=== PATIENT | male | born 1960 | race Two or more races ===

== ENCOUNTER 2022-12-23 12:18 | Emergency (ER) | payer OTHER ==
[~2022-12-23] VITALS: Ht 175.3 cm; Wt 86.2 kg
[2022-12-23 12:37] VITALS: BP 143/91
[2022-12-23 13:17] LABS: BASOPHILS ABSOLUTE AUTO 0.09 K/mm3 (0.00-0.23); BASOPHILS PERCENT AUTO 1 % (0-2); EOSINOPHILS ABSOLUTE AUTO 0.08 K/mm3 (0.00-0.68); EOSINOPHILS PERCENT AUTO 1 % (0-6); Hematocrit 37.7 % (37.0-53.0); Hemoglobin 12.3 g/dL (13.5-17.5); IMMATURE GRAN ABSOLUTE AUTO 0.06 K/mm3 (0.00-0.10); IMMATURE GRAN PERCENT AUTO 1 % (0-1); LYMPHOCYTES ABSOLUTE AUTO 2.02 K/mm3 (0.84-5.20); LYMPHOCYTES PERCENT AUTO 28 % (21-46); MONOCYTES ABSOLUTE AUTO 0.37 K/mm3 (0.16-1.47); MONOCYTES PERCENT AUTO 5 % (4-13); Mean Corpuscular HGB 30.6 pg (26.0-34.0); Mean Corpuscular HGB Conc 32.6 g/dL (31.5-36.5); Mean Corpuscular Volume 94 fL (80-100); Mean Platelet Volume 9.7 fL (9.1-12.4); NEUTROPHILS ABSOLUTE AUTO 4.56 K/mm3 (1.96-9.15); NEUTROPHILS PERCENT AUTO 64 % (41-73); Platelet Count 203 K/mm3 (150-400); RDW Coefficient Variation 14.8 % (11.7-14.2); RDW Standard Deviation 51.2 fL (35.1-46.3); Red Blood Cell Count 4.02 M/mm3 (4.30-5.90); White Blood Cell Count 7.18 K/mm3 (4.00-11.30)
[2022-12-23 13:36] LABS: Albumin, Blood 4.1 g/dL (3.4-5.0); Albumin/Globulin Ratio 1.1 (0.8-1.8); Bilirubin, Total 0.4 mg/dL (0.1-1.0); Bun/Creatinine Ratio 10.2 (12.0-20.0); Calcium, Blood 8.6 mg/dL (8.5-10.1); Creatinine, Blood 1.76 mg/dL (0.60-1.20); Globulin, Blood 3.6 g/dL (2.2-4.0); Potassium, Blood 3.9 mmol/L (3.5-5.5); Total Protein, Blood 7.7 g/dL (6.4-8.2)
== END 2022-12-23 14:30 | disposition left against medical advice (07) ==
LOC: ER 12:18
PROVIDERS: Student in an Organized Health Care Education/Training Program
DX: R06.02 Shortness of breath (principal); R47.81 Slurred speech; Z53.21 Procedure and treatment not carried out due to patient leaving prior to being seen by health care provider
CPT/HCPCS: 71046; 80053; 83880; 85025; 93005; 93010; 99282-25

== ENCOUNTER 2023-11-28 00:12 | Emergency (ER) | payer OTHER ==
[~2023-11-28] VITALS: Ht 177.8 cm; Wt 83.9 kg
[2023-11-28 02:10] LABS: BASOPHILS ABSOLUTE AUTO 0.09 K/mm3 (0.00-0.23); BASOPHILS PERCENT AUTO 2 % (0-2); EOSINOPHILS ABSOLUTE AUTO 0.05 K/mm3 (0.00-0.68); EOSINOPHILS PERCENT AUTO 1 % (0-6); Hematocrit 38.1 % (37.0-53.0); Hemoglobin 11.8 g/dL (13.5-17.5); IMMATURE GRAN ABSOLUTE AUTO 0.04 K/mm3 (0.00-0.10); IMMATURE GRAN PERCENT AUTO 1 % (0-1); LYMPHOCYTES ABSOLUTE AUTO 1.45 K/mm3 (0.84-5.20); LYMPHOCYTES PERCENT AUTO 26 % (21-46); MONOCYTES ABSOLUTE AUTO 0.27 K/mm3 (0.16-1.47); MONOCYTES PERCENT AUTO 5 % (4-13); Mean Corpuscular HGB 29.9 pg (26.0-34.0); Mean Corpuscular Volume 97 fL (80-100); Mean Platelet Volume 9.6 fL (9.1-12.4); NEUTROPHILS ABSOLUTE AUTO 3.69 K/mm3 (1.96-9.15); NEUTROPHILS PERCENT AUTO 66 % (41-73); Platelet Count 172 K/mm3 (150-400); RDW Coefficient Variation 15.2 % (11.7-14.2); RDW Standard Deviation 54.3 fL (35.1-46.3); Red Blood Cell Count 3.95 M/mm3 (4.30-5.90); White Blood Cell Count 5.59 K/mm3 (4.00-11.30)
[2023-11-28 02:11] LABS: Albumin, Blood 3.8 g/dL (3.4-5.0); Bilirubin, Total 0.3 mg/dL (0.1-1.0); Bun/Creatinine Ratio 12.8 (12.0-20.0); Calcium, Blood 9.1 mg/dL (8.5-10.1); Creatinine, Blood 1.56 mg/dL (0.60-1.20); Potassium, Blood 4.3 mmol/L (3.5-5.5); Total Protein, Blood 7.8 g/dL (6.4-8.2)
[2023-11-28 04:03] LABS: Source, Urine Clean Catch
[2023-11-28 04:06] LABS: Bilirubin, Urine Neg (Neg); Blood, Urine Neg (Neg); Glucose Qualitative, Urine Neg (Neg); Ketones, Urine Neg (Neg); Leukocyte Esterase, Urine Neg (Neg); Nitrite, Urine Neg (Neg); Protein, Urine 3+ (Neg); Urobilinogen, Urine 1+ (Normal)
[2023-11-28 04:28] LABS: Appearance, Urine Clear (Clear); Bacteria Not Seen /hpf; Color, Urine Yellow (P-Yellow); Mucus Light (0-Heavy); Red Blood Cells, Urine Not Seen /hpf (0-2); Squamous Epithelial Cells Not Seen /hpf (Few); White Blood Cells, Urine 0-2 /hpf (0-5)
[2023-11-28] MEDS ORDERED: Glycerin Adult Supp 1 EA PR ONE (04:55)
[2023-11-28] MEDS ORDERED: DOCU100 PO (05:44)
[2023-11-28] MEDS ORDERED: ADULT GLYCERIN1 EACH PR (05:44)
[2023-11-28 05:55] VITALS: BP 149/75
== END 2023-11-28 05:56 | disposition home or self-care (01) ==
LOC: ER 00:12
PROVIDERS: Emergency Medicine
DX: K59.00 Constipation, unspecified (principal); I71.012 Dissection of descending thoracic aorta; I71.02 Dissection of abdominal aorta; I71.21 Aneurysm of the ascending aorta, without rupture; I31.39 Other pericardial effusion (noninflammatory); I50.9 Heart failure, unspecified; I69.334 Monoplegia of upper limb following cerebral infarction affecting left non-dominant side; Z91.81 History of falling; Z88.8 Allergy status to other drugs, medicaments and biological substances
CPT/HCPCS: 71045; 71275; 74177; 80053; 81001; 83880; 84484; 85025; 93005; 93010; 99284-25; A9270; Q9967

== ENCOUNTER 2024-05-29 15:29 | Emergency (ER) | payer OTHER ==
[~2024-05-29] VITALS: Ht 177.8 cm; Wt 104.3 kg
[~2024-05-29 15:29] MED LIST: ADULT GLYCERIN1 EACH PR; DOCU100 PO
[2024-05-29 15:41] VITALS: BP 110/80
[2024-05-29 16:14] LABS: Hematocrit 38.6 % (37.0-53.0); Hemoglobin 12.8 g/dL (13.5-17.5); Mean Corpuscular HGB Conc 33.2 g/dL (31.5-36.5); Mean Corpuscular Volume 94 fL (80-100); Mean Platelet Volume 8.2 fL (9.1-12.4); Platelet Count 229 K/mm3 (150-400); RDW Coefficient Variation 14.4 % (11.7-14.2); RDW Standard Deviation 49.3 fL (35.1-46.3); Red Blood Cell Count 4.13 M/mm3 (4.30-5.90); White Blood Cell Count 6.95 K/mm3 (4.00-11.30)
[2024-05-29 16:33] LABS: Albumin, Blood 3.5 g/dL (3.4-5.0); Albumin/Globulin Ratio 0.8 (0.8-1.8); Bilirubin, Total 0.4 mg/dL (0.1-1.0); Bun/Creatinine Ratio 14.3 (12.0-20.0); Calcium, Blood 8.7 mg/dL (8.5-10.1); Creatinine, Blood 1.47 mg/dL (0.60-1.20); Globulin, Blood 4.3 g/dL (2.2-4.0); Potassium, Blood 4.1 mmol/L (3.5-5.5); Total Protein, Blood 7.8 g/dL (6.4-8.2)
[2024-05-29 16:34] LABS: BAND PERCENT MAN 1 % (0-8); BASOPHILS PERCENT MAN 3 % (0-2); EOSINOPHILS ABSOLUTE MAN 0.13 K/mm3 (0.00-0.68); EOSINOPHILS PERCENT MAN 2 % (0-6); LYMPHOCYTES ABSOLUTE MAN 1.94 K/mm3 (0.84-5.20); LYMPHOCYTES PERCENT MAN 28 % (21-46); METAMYELOCYTE ABSOLUTE MAN 0.06 K/mm3 (0.00-0.00); METAMYELOCYTE PERCENT MAN 1 % (0-0); MONOCYTES ABSOLUTE MAN 0.13 K/mm3 (0.16-1.47); MONOCYTES PERCENT MAN 2 % (4-13); MYELOCYTE ABSOLUTE MAN 0.13 K/mm3 (0.00-0.00); MYELOCYTE PERCENT MAN 2 % (0-0); SEG NEUTROPHILS PERCENT MAN 61 % (41-73); TOTAL CELLS COUNTED 100
== END 2024-05-29 18:35 | disposition left against medical advice (07) ==
LOC: ER 15:29
PROVIDERS: Physician Assistant
DX: R06.02 Shortness of breath (principal); I50.9 Heart failure, unspecified; Z53.21 Procedure and treatment not carried out due to patient leaving prior to being seen by health care provider
CPT/HCPCS: 71046; 80053; 83880; 84484; 85025; 93005; 93010; 99282-25

== ENCOUNTER 2025-01-19 23:35 | Inpatient (IN) | payer OTHER ==
[~2025-01-19] VITALS: Ht 175.3 cm; Wt 98.6 kg
[2025-01-20] VITALS (31 sets, daily range): BP systolic 97–147; BP diastolic 56–88
[2025-01-20] MEDS ORDERED: NICODERM CQ1 EA25 TD (00:06)
[2025-01-20] MEDS ORDERED: LISI20 PO ×2 (00:06→07:49)
[2025-01-20] MEDS ORDERED: HYDCHL25 PO (00:07)
[2025-01-20 00:09] LABS: Hematocrit 36.3 % (37.0-53.0); Hemoglobin 11.8 g/dL (13.5-17.5); Mean Corpuscular HGB Conc 32.5 g/dL (31.5-36.5); Mean Corpuscular Volume 91 fL (80-100); NRBC ABSOLUTE 0.00 K/mm3 (0.00-0.02); NRBC Auto 0.0 /100 WBC (0.0-0.2); Platelet Count 350 K/mm3 (150-400); RDW Coefficient Variation 13.6 % (11.7-14.2); RDW Standard Deviation 45.9 fL (35.1-46.3)
[2025-01-20 00:37] LABS: BAND PERCENT MAN 3 % (0-8); BASOPHILS ABSOLUTE MAN 0.00 K/mm3 (0.00-0.23); BASOPHILS PERCENT MAN 0 % (0-2); EOSINOPHILS ABSOLUTE MAN 0.00 K/mm3 (0.00-0.68); EOSINOPHILS PERCENT MAN 0 % (0-6); LYMPHOCYTES ABSOLUTE MAN 0.45 K/mm3 (0.84-5.20); LYMPHOCYTES PERCENT MAN 2 % (21-46); MONOCYTES ABSOLUTE MAN 1.37 K/mm3 (0.16-1.47); MONOCYTES PERCENT MAN 6 % (4-13); MYELOCYTE ABSOLUTE MAN 0.22 K/mm3 (0.00-0.00); MYELOCYTE PERCENT MAN 1 % (0-0); NEUTROPHILS ABSOLUTE MAN 20.87 K/mm3 (1.96-9.15); SEG NEUTROPHILS PERCENT MAN 88 % (41-73)
[2025-01-20 03:15] LABS: Alanine Aminotransfer (ALT/SGP 27.0 U/L (12-78); Albumin, Blood 2.2 g/dL (3.4-5.0); Albumin/Globulin Ratio 0.5 (0.8-1.8); Anion Gap 7.0 mmol/L (3-11); Aspartate Aminotrans (AST/SGOT 36.0 U/L (12-37); Bilirubin, Total 0.6 mg/dL (0.1-1.0); Blood Urea Nitrogen 21.0 mg/dL (8-24); CO2, Blood 28.0 mmol/L (21-32); Calcium, Blood 8.5 mg/dL (8.5-10.1); Chloride, Blood 103.0 mmol/L (98-108); Creatinine, Blood 1.31 mg/dL (0.60-1.20); Globulin, Blood 4.5 g/dL (2.2-4.0); Glucose, Blood 118.0 mg/dL (70-99); Magnesium, Blood 2.1 mg/dL (1.6-2.4); Phosphorus, Blood 2.7 mg/dL (2.5-4.9); Potassium, Blood 3.9 mmol/L (3.5-5.5); Sodium, Blood 134.0 mmol/L (136-145); Thyroid Stimulating Hormone 45.5 uIU/mL (0.360-4.800); Total Protein, Blood 6.7 g/dL (6.4-8.2); Uric Acid, Blood 4.1 mg/dL (3.5-7.2)
[2025-01-20 03:53] LABS: Source, Urine Clean Catch
[2025-01-20 03:59] LABS: Glucose Qualitative, Urine Neg (Neg); Ketones, Urine Neg (Neg); Leukocyte Esterase, Urine 1+ (Neg); Protein, Urine 3+ (Neg); Specific Gravity, Urine 1.015 (1.003-1.022); Urobilinogen, Urine 2+ (Normal)
[2025-01-20 04:07] LABS: Bilirubin, Urine 1+ (Neg); Color, Urine Amber (P-Yellow); Red Blood Cells, Urine 0-2 /hpf (0-2); White Blood Cells, Urine 0-2 /hpf (0-5)
[2025-01-20] MEDS ORDERED: CefTRIAXone Sodium 1,000 MG in NS 50 ML IV ONE (04:10)
[2025-01-20] MEDS ORDERED: FLU VACC TS2025-26(6MOS UP)/PF 45 MCG/0.5 ML SYRINGE IM SCH (05:35)
[2025-01-20] MEDS ORDERED: Ondansetron HCl 2 MG / ML 2ML Vial IV PRN (05:35)
[2025-01-20] MEDS ORDERED: Ampicillin Sod/Sulbactam Sod 3 GM in NS 100 ML IV SCH (06:18)
[2025-01-20] MEDS ORDERED: EUTHYROX75 MC1 PO (07:48)
[2025-01-20] MEDS ORDERED: CYCL10 PO (07:48)
[2025-01-20] MEDS ORDERED: ZOLOFT50 MG PO (07:49)
[2025-01-20] MEDS ORDERED: Lactobacil 2-S.Thermo-Bifido 1 1 Cap PO SCH (09:00)
[2025-01-20 09:23] LABS: Influenza A/2009-H1 Not Detected (NOT DETECT); SARS-Cov-2 (COVID-19), BioFire Not Detected (NOT DETECT)
[2025-01-20] MEDS ORDERED: Albuterol 2.5 MG/3 ML VIAL INH PRN (10:00)
[2025-01-20 10:50] LABS: pH Blood Venous 7.32 (7.34-7.37)
[2025-01-20 12:41] LABS: U Amphetamine Screen Not Detected; U Barbiturate Screen Not Detected; U Benzodiazapine Screen Not Detected; U Buprenorphine Screen Not Detected; U Cannabinoids Screen Not Detected; U Cocaine Screen Not Detected; U Methadone Screen Not Detected; U Methamphetamine Screen Not Detected; U Opiates Screen Not Detected; U Oxycodone Screen Not Detected; U Phencyclidine Screen Not Detected
--- NOTE | 2025-01-20 15:51 | NUR ---
ADMISSION/TRANSFER: PT IS NEW ADMIT, ARRIVAL TO PCU APPROX 0750, TRANSFERS SELF W/ 2P SBA. PT ARRIVES ALERT, INITIALLY EXPRESSING FEELING ANXIOUS, FIDGETING WITH PULSE OX/CLOTHING, NOT FOLLOWING DIRECTION WELL OR ANWERING ORIENTATION QUESTIONS FULLY BEFORE RAMBLING ABOUT UNRELATED TOPICS. PROVIDER NOTIFIED, NEW ORDERS PLACED AND PT MEDICATED PER EMAR. PT ENDORSES INTERMITTENT SOB/DYSPNEA W/ACTIVITY, O2 SATS MAINTAINED >92%, CURRENTLY ON 4 L/MIN NC. PT DENIES CP, SR ON MONITOR, RATE 80s. PT TO/FROM RESTROOM W/ 2P SBA AND FWW, URINE SPECIMEN COLLECTED AND SENT TO LAB. PT HAS BEEN SLEEPING/RESTING IN BED SINCE SPENDING TIME IN RECLINER FOR LUNCH, HAS BEEN COOPERATIVE W/CARE. ECHO COMPLETED AT BEDSIDE, PROVIDER NOTIFIED THIS UNIT WHILE READING ECHO, PT TO BE TRANSFERED TO ICU FOR CONTINUATION OF CARE. PULMONOLOGY CONSULT COMPLETED BY DR GREEN WHO STATES THE BRONCHOSCOPY FOR TOMORROW IS CURRENTLY ON HOLD. REPORT HAS BEEN GIVEN TO MAIA, PT TRANSFERED VIA [facility].
--- NOTE | 2025-01-20 16:23 | NUR ---
TRANSFER TO ICU: PT WAS TRANSFERRED TO ICU-4 BY BED AT APPROX 1555. PT DROWSY, ABLE TO COMMUNICATE W/ STAFF, SPEAKING IN SHORT PHRASES. HR 80'S, SINUS RHYTHM W/ PVC'S ON MONITOR. SBP 120'S, MAP >65. PT DENIES CHEST PAIN/PRESSURE. DENIES SOB. SPO2 >90% ON 4L O2 VIA NC. DR. SCHUSTER TO BEDSIDE SHORTLY AFTER TRANSFER; PT REQUESTS FULL CODE STATUS. ORDER UPDATED. CARDIOLOGY CONSULT PLACED PER ORDER, DR. WOOD NOTIFIED OF CONSULT. NPO AT THIS TIME. LR INFUSING AT 75 ML/HR, PIV TO LAC. ATTEMPTED TO CALL DAUGHTER (ANDRE) AND SISTER (KAILEE), UNABLE TO REACH EITHER FAMILY MEMBER AT THIS TIME. PT RESTING IN BED.
--- NOTE | 2025-01-20 18:19 | NUR ---
END OF SHIFT: NO ACUTE EVENTS FOLLOWING TRANSFER TO ICU. VSS. PG PLACED TO NATALIA. IVF INFUSING AT 75 ML/HR PER ORDERS. PT RESTING IN BED AT THIS TIME. CALL LIGHT IN REACH.
--- NOTE | 2025-01-20 20:00 | NUR ---
PT UPDATE: PT HAD IN DEPTH DISCUSSION W/THIS RN ABOUT HIS FEELINGS TOWARD THE PLAN OF CARE AND PLANNED DIAGNOSTIC TESTS. PT SHARED W/THIS RN THAT HE FELT LIKE LEAVING "AGAINST MEDICAL ADVICE" DUE TO FEELING THAT "OTHERS TOOK CONTROL OF THE SITUATION" AND HE WAS NO LONGER IN CONTROL OF HIS HEALTH CARE DECISIONS. PT SHARED THAT THIS MADE HIM VERY ANXIOUS. THIS RN PROVIDED ACTIVE EMPATHETIC LISTENING AND ENCOURAGEMENT. PT WAS ALSO EDUCATED ON REASONING BEHIND HIS NPO STATUS, WHICH WAS SOMETHING THAT HE VERBALIZED FRUSTRATION OF. ACCORDING TO DAY SHIFT RN, PT HAD MULTIPLE DISCUSSIONS W/MD REGARDING CODE STATUS/PLAN OF CARE. UNSURE IF PT FULLY UNDERSTOOD WHAT WAS DISCUSSED OR IF PTS FORGETFULLNESS IS WHAT IS AFFECTING HIS MEMORY/DECISION MAKING. AT END OF DISCUSSION, PT WAS AGREEABLE TO STAYING THE NIGHT AND PLANS TO DISCUSS THIS FURTHER W/ DR TOMORROW. RN PLACED CALL TO HOSPITALIST WHO ORDERED ATIVAN ONE TIME DOSE, SEE EMAR, FOR ANXIETY.
[2025-01-20] MEDS ORDERED: LORazepam 2 MG/ML 1ML Injection IV ONE (21:00)
[2025-01-21] VITALS (72 sets, daily range): BP systolic 73–144; BP diastolic 51–91
[2025-01-21 05:05] LABS: BASOPHILS ABSOLUTE AUTO 0.08 K/mm3 (0.00-0.23); BASOPHILS PERCENT AUTO 0 % (0-2); EOSINOPHILS ABSOLUTE AUTO 0.01 K/mm3 (0.00-0.68); EOSINOPHILS PERCENT AUTO 0 % (0-6); Hematocrit 35.9 % (37.0-53.0); Hemoglobin 10.8 g/dL (13.5-17.5); IMMATURE GRAN ABSOLUTE AUTO 0.50 K/mm3 (0.00-0.10); IMMATURE GRAN PERCENT AUTO 2 % (0-1); LYMPHOCYTES ABSOLUTE AUTO 0.63 K/mm3 (0.84-5.20); LYMPHOCYTES PERCENT AUTO 3 % (21-46); MONOCYTES ABSOLUTE AUTO 0.95 K/mm3 (0.16-1.47); MONOCYTES PERCENT AUTO 4 % (4-13); Mean Corpuscular HGB Conc 30.1 g/dL (31.5-36.5); NEUTROPHILS ABSOLUTE AUTO 20.71 K/mm3 (1.96-9.15); NEUTROPHILS PERCENT AUTO 91 % (41-73); NRBC ABSOLUTE 0.00 K/mm3 (0.00-0.02); NRBC Auto 0.0 /100 WBC (0.0-0.2); Platelet Count 336 K/mm3 (150-400); RDW Coefficient Variation 14.0 % (11.7-14.2); RDW Standard Deviation 50.0 fL (35.1-46.3)
[2025-01-21 05:12] LABS: Mean Corpuscular Volume 97 fL (80-100)
[2025-01-21 05:19] LABS: Prothrombin Time Results 11.8 Sec (9.7-11.5)
[2025-01-21 05:46] LABS: Alanine Aminotransfer (ALT/SGP 22.0 U/L (12-78); Albumin, Blood 2.2 g/dL (3.4-5.0); Albumin/Globulin Ratio 0.5 (0.8-1.8); Anion Gap 8.0 mmol/L (3-11); Aspartate Aminotrans (AST/SGOT 21.0 U/L (12-37); Bilirubin, Total 0.5 mg/dL (0.1-1.0); Blood Urea Nitrogen 19.0 mg/dL (8-24); CO2, Blood 31.0 mmol/L (21-32); Calcium, Blood 8.8 mg/dL (8.5-10.1); Chloride, Blood 104.0 mmol/L (98-108); Creatinine, Blood 1.37 mg/dL (0.60-1.20); Globulin, Blood 4.8 g/dL (2.2-4.0); Glucose, Blood 92.0 mg/dL (70-99); Magnesium, Blood 2.4 mg/dL (1.6-2.4); Potassium, Blood 3.9 mmol/L (3.5-5.5); Sodium, Blood 139.0 mmol/L (136-145); Total Protein, Blood 7.0 g/dL (6.4-8.2)
--- NOTE | 2025-01-21 05:59 | NUR ---
SHIFT SUMMARY: PT RECEIVED ATIVAN, PER ORDERS, SHORTLY AFTER START OF SHIFT. PT HAD BEEN FEELING VERY ANXIOUS. AFTER MEDICATION, PT SLEPT T/O THE NIGHT. REMAINED AROUSABLE TO VOICE, THOUGH DROWSY. VSS. MAP>65. HR 60-70S, SINUS. PT REMAINS ON 4L O2 VIA NC. SATS>90%. DENIES CHEST PAIN, ENDORSED SOB W/EXERTION. PT HAS OCCASSIONAL COUGH, PRODUCTIVE. ABD SOFT, BT HYPOACTIVE X4. USING URINAL TO VOID. HE DID HAVE SMALL EPISODE OF INCONTINENCE DUE TO NOT GETTING TO URINAL QUICK ENOUGH. NEW LINENS AND ATTENDS CHANGE PROVIDED. POWERGLIDE TO NATALIA AND PIV IN LAC. MAINTENANCE LR RUNNING AT 75ML/HR. CARE CONTINUES. THIS RN TO REPORT TO ONCOMING RN.
--- NOTE | 2025-01-21 07:00 | NUR ---
CARE ASSUMPTION DURING BEDSIDE SHIFT REPORT Jacki LIU RN THE PT IS LYING IN BED SLEEPING COMFORTABLY. PT AWAKENS TO VOICE BUT IS VERY DROWSY, NOC RN REPORTING THAT PT RECIEVED IV ATIVAN AND HAS BEEN DROWSY SINCE THEN. PT ANSWERING SIMPLE YES/NO QUESTIONS BUT IS SLOW TO RESPOND. PT HAS LIMITED ROM IN HIS LUE, PROVIDER AWARE OF THIS WELL THE EDEMA IN HIS LEFT HAND. PT'S MONITOR SHOWING SA 60'S-80'S W OCCASIONAL PVC'S. PT REPORTS MINIMAL CP THAT IS UNCHANGED SINCE ADMISSION. PT'S SISTER AT BEDSIDE AT THIS TIME. PLAN FOR PT TO GO TO AMUSEMENT PARK WORKER THIS AM.
[2025-01-21] MEDS ORDERED: NS 500 ML IV ONE (08:36)
[2025-01-21] MEDS ORDERED: Heparin Sodium 1000 Units/ML 10ML MDV ONE ×2 (08:36→11:02)
[2025-01-21] MEDS ORDERED: NS 1,000 ML IV ONE ×2 (08:41→11:34)
[2025-01-21] MEDS ORDERED: FentaNYL Citrate 50 MCG/ML 2 ML Injection ONE ×3 (09:09→11:34)
[2025-01-21] MEDS ORDERED: Midazolam HCl 1MG / ML 2ML Vial ONE ×2 (09:09→11:34)
--- NOTE | 2025-01-21 10:08 | NUR ---
RETURNED FROM PROFESSIONAL SECURITY OFFICER. PT BACK TO RM FROM PROFESSIONAL SECURITY OFFICER. REPORT FROM HC TEAM IS PROCEDURE WAS UNSUCCESSFUL AND PT WILL NEED TO GO TO CT SCAN FOR ANOTHER ATTEMMPT TODAY. PT'S VSS ON 2L OXYMASK. PT W RASS OF -2, PROFESSIONAL SECURITY OFFICER TEAM REPORTING GIVING PT SEDATION MEDS DURING PROCEDURE. PT W MINIMAL RESPONSE VERBALLY EXCEPT MOANING YES/NO. PROVIDER AWARE OF RASS LEVEL.
[2025-01-21 10:49] LABS: pH Blood Venous 7.21 (7.34-7.37)
[2025-01-21 10:59] LABS: BASOPHILS ABSOLUTE AUTO 0.08 K/mm3 (0.00-0.23); BASOPHILS PERCENT AUTO 0 % (0-2); EOSINOPHILS ABSOLUTE AUTO 0.01 K/mm3 (0.00-0.68); EOSINOPHILS PERCENT AUTO 0 % (0-6); Hematocrit 37.3 % (37.0-53.0); Hemoglobin 11.2 g/dL (13.5-17.5); IMMATURE GRAN ABSOLUTE AUTO 0.46 K/mm3 (0.00-0.10); IMMATURE GRAN PERCENT AUTO 2 % (0-1); LYMPHOCYTES ABSOLUTE AUTO 0.80 K/mm3 (0.84-5.20); LYMPHOCYTES PERCENT AUTO 4 % (21-46); MONOCYTES ABSOLUTE AUTO 0.97 K/mm3 (0.16-1.47); MONOCYTES PERCENT AUTO 4 % (4-13); Mean Corpuscular HGB Conc 30.0 g/dL (31.5-36.5); Mean Corpuscular Volume 99 fL (80-100); NEUTROPHILS ABSOLUTE AUTO 19.63 K/mm3 (1.96-9.15); NEUTROPHILS PERCENT AUTO 90 % (41-73); NRBC ABSOLUTE 0.00 K/mm3 (0.00-0.02); NRBC Auto 0.0 /100 WBC (0.0-0.2); Platelet Count 334 K/mm3 (150-400); RDW Coefficient Variation 14.3 % (11.7-14.2); RDW Standard Deviation 51.8 fL (35.1-46.3)
[2025-01-21] MEDS ORDERED: NS 250 ML IV ONE (11:02)
[2025-01-21 11:19] LABS: Anion Gap 5.0 mmol/L (3-11); Blood Urea Nitrogen 22.0 mg/dL (8-24); CO2, Blood 33.0 mmol/L (21-32); Calcium, Blood 8.9 mg/dL (8.5-10.1); Chloride, Blood 103.0 mmol/L (98-108); Creatinine, Blood 1.34 mg/dL (0.60-1.20); Glucose, Blood 80.0 mg/dL (70-99); Potassium, Blood 3.8 mmol/L (3.5-5.5); Sodium, Blood 137.0 mmol/L (136-145)
[2025-01-21] MEDS ORDERED: Ondansetron HCl 2 MG / ML 2ML Vial ONE (11:39)
[2025-01-21] MEDS ORDERED: Naloxone HCl 0.4MG / ML 1ML Vial ONE (11:39)
[2025-01-21] MEDS ORDERED: Flumazenil 0.1 MG / ML 5ML Vial ONE (11:41)
[2025-01-21 13:12] LABS: Automated BF WBC Count 0.164 K/mm3 (0-999)
[2025-01-21] MEDS ORDERED: Ipratropium/Albuterol SulF 2.5-0.5MG/3 ML Amp INH SCH (13:20)
--- NOTE | 2025-01-21 13:24 | NUR ---
REASSESSMENT PT BACK FROM CT WHERE HE HAD PARACARDIALCENTESIS PERFORMED. PT STILL OBTUNDED ONLY AROUSING BRIEFLY TO VOICE BUT UNABLE TO MAINTAIN EYE CONTACT. PT ON BIPAP 16/8 W 40% FIO2. LS ARE STILL COARSE IN RUL BUT DIMINISHED T/O. MONITOR SHOWING SR 60'S. BP WNL AND STABLE. DR. GREEN MADE AWARE OF PT'S US RESULTS SHOWING DVT IN LUE. NO NEW ORDERS AT THIS TIME. DR. GREEN STATING IT IS OK TO KEEP IV'S IN PT'S LUE FOR NOW THE OPTIONS FOR PERIPHERAL ACCESS IN HIS RUE ARE LIMITED.
[2025-01-21 13:31] LABS: Color, Body Fluid Yellow (None-Yellow)
[2025-01-21 13:47] LABS: RBC Count, Body Fluid 119 /mm3 (0-0)
[2025-01-21 13:59] LABS: pH Blood Venous 7.17 (7.34-7.37)
[2025-01-21 13:59] LABS: Lactate Dehydrogenase, Body Fl 174 U/L
[2025-01-21 14:42] LABS: Lymphocytes, Fluid 1.0 % (0.0-18.0); Monocytes/Mononuclear, Fluid 36.0 % (0.0-50.0); Neutrophils, Fluid 63.0 % (0.0-25.0); Total Cell Count, Body Fluid 100
--- NOTE | 2025-01-21 14:55 | NUR ---
UPDATE AFTER RT CHANGED BIPA BACKUP RATE FROM 14 TO 20 THE PT IS BECOMING MORE ALERT AND MAINTAINING EYE CONTACT. DECESION MADE BY DR. GREEN TO CONTINUE BIPAP AND RECHECK VBG. THIS CONFIRMING W DR. GREEN THAT IV LINES ARE OK TO REMAIN IN LUE DESPITE US REPORT WHICH HE GAVE VERBAL INSTRUCTIONS TO LEAVE IV LINES IN PLACE. VSS AND FIO2 TURNED DOWN TO 30% BY DR. GREEN.
[2025-01-21 15:57] LABS: pH Blood Venous 7.20 (7.34-7.37)
--- NOTE | 2025-01-21 16:06 | NUR ---
PROVIDER CONTACT [facility] PH 7.[address] GEREN. WE ARE TO CONTINUE PLAN OF CARE AND PROVIDER WILL PUT IN AN ORDER FOR STEROIDS.
--- NOTE | 2025-01-21 16:51 | NUR ---
1600 ASSESSMENT PATIENT ALERT AND ORIENTED AND ABLE TO ANSWER QUESTIONS. PATIENT IS ON THE BIPAP 20/8 30% FIO2 WITH SPO2 >94%. HR SINUS IN THE 60S-70S. BP STABLE WITH MAPS >65. PATIENT HAS NOT HAD ANY URINE OUTPUT THIS SHIFT. PATIENT WAS UNABLE TO URINATE WHEN ASKED. BLADDER SCAN SHOWED 351ML IN BLADDER. NO BM THIS SHIFT. DRESSING FROM PERICARDIOCENTESIS C/D/I. PATIENT JO ANN CP/PRESSURE. CALL LIGHT NEAR.
--- NOTE | 2025-01-21 18:28 | NUR ---
DAY SHIFT SUMMARY PT BEGAN THE SHIFT OBTUNDED NOC RN REPORTED HE RECIEVED ATIVAN AND HAD BEEN DROWSY EVER SINCE. PT TO PATENTED HOGSHEAD ASSEMBLER THIS AM WHERE HE RECIEVED IV PAIN MEDICATION FOR SEDATION AND THE PROCEDURE WAS UNSUCCESSFUL. UPON RETURNING TO ICU THE PT WAS OBTUNDED AND A VBG WAS DRAWN SHOWING ELEVATED CO2 LEVEL SO PT PLACED ON BIPAP. PT TAKEN TO CT SCAN AND HAD PERICARDIALCENTESIS WHICH REMOVED 840ML. PT REMAINED ON BIPAP AND DESPITE CO2 LEVEL REMIANING ELEVATED THE PT'S MENTATION HAS IMPROVED SO PLAN TO KEEP PT ON BIPAP ALLOWING SHORT BREAKS LONG THE PT REMAIONS AWAKE. PT'S LUE SWOLLEN THIS SHIFT SO US DONE SHOWING DVT. PER PROVIDER NO ANTICOAGULATION AT THIS TIME AND TO KEEP CURRENT IV ACCESS IN LUE DESPITE DVT. PT AWAKE THIS AFTERNOON COMMUNICATING APPROPRIATELY W STAFF SO PT GIVEN SHORT BREAKS OFF BIPAP FOR PO FLUIDS. PT GIVEN ENSURE CLEAR THIS AFTERNOON HIS 1800 CBG IN THE 70'S, PT TOLERATING PO INTAKE WELL. VSS. MONITOR SHOWING SR 60'S-70'S W PVC'S. PT'S SISTER KAILEE UPDATED THIS AFTERNOON ON PT'S DAY AND PROCEDURE RESULTS. PT W MINIMAL INCONTINENT VOID THIS SHIFT, BLADDER SCAN THIS AFTERNOON SHOWING 350. WILL REPORT TO ONCOMING RN.
--- NOTE | 2025-01-21 22:40 | NUR ---
AGITATION PT PULLING OFF BIPAP MASK AND PULLING ON CORDS/LINES. YELLING OUT. DOES NOT CALM WITH REASSURANCE OR EXPLANATION OF PLAN OF CARE. NEW ORDER RECEIVED FOR PRECEDEX GTT IVT.
[2025-01-22] VITALS (30 sets, daily range): BP systolic 75–160; BP diastolic 50–122
--- NOTE | 2025-01-22 00:30 | NUR ---
CALL TO MD DR. GREEN NOTIFIED OF SBP 70s WITH MAP LOW 60s WITH PRECEDEX AT 0.1MCG/KG/HR. ALSO NOTIFIED OF CONTINUED AGIATION AND ANXIOUSNESS. NEW ORDER FOR LR BOLUS AT THIS TIME.
[2025-01-22 05:31] LABS: pH Blood Venous 7.33 (7.34-7.37)
[2025-01-22 05:32] LABS: BASOPHILS ABSOLUTE AUTO 0.03 K/mm3 (0.00-0.23); BASOPHILS PERCENT AUTO 0 % (0-2); EOSINOPHILS ABSOLUTE AUTO 0.00 K/mm3 (0.00-0.68); EOSINOPHILS PERCENT AUTO 0 % (0-6); Hematocrit 31.8 % (37.0-53.0); Hemoglobin 9.9 g/dL (13.5-17.5); IMMATURE GRAN ABSOLUTE AUTO 0.47 K/mm3 (0.00-0.10); IMMATURE GRAN PERCENT AUTO 2 % (0-1); LYMPHOCYTES ABSOLUTE AUTO 0.71 K/mm3 (0.84-5.20); LYMPHOCYTES PERCENT AUTO 3 % (21-46); MONOCYTES ABSOLUTE AUTO 0.24 K/mm3 (0.16-1.47); MONOCYTES PERCENT AUTO 1 % (4-13); Mean Corpuscular HGB Conc 31.1 g/dL (31.5-36.5); NEUTROPHILS ABSOLUTE AUTO 19.83 K/mm3 (1.96-9.15); NEUTROPHILS PERCENT AUTO 93 % (41-73); NRBC ABSOLUTE 0.00 K/mm3 (0.00-0.02); NRBC Auto 0.0 /100 WBC (0.0-0.2); Platelet Count 354 K/mm3 (150-400); RDW Coefficient Variation 14.0 % (11.7-14.2); RDW Standard Deviation 49.2 fL (35.1-46.3)
[2025-01-22 05:34] LABS: Mean Corpuscular Volume 94 fL (80-100)
[2025-01-22 06:20] LABS: Anion Gap 9.0 mmol/L (3-11); Blood Urea Nitrogen 24.0 mg/dL (8-24); CO2, Blood 30.0 mmol/L (21-32); Calcium, Blood 8.5 mg/dL (8.5-10.1); Chloride, Blood 103.0 mmol/L (98-108); Creatinine, Blood 1.22 mg/dL (0.60-1.20); Glucose, Blood 160.0 mg/dL (70-99); Glutamyl Transpeptidase, GGT 17.0 U/L (15-85); Magnesium, Blood 2.3 mg/dL (1.6-2.4); Phosphorus, Blood 3.5 mg/dL (2.5-4.9); Potassium, Blood 4.1 mmol/L (3.5-5.5); Sodium, Blood 138.0 mmol/L (136-145)
--- NOTE | 2025-01-22 06:21 | NUR ---
SHIFT SUMMARY PT IS ALERT AND ORIENTED BUT NEEDS FREQUENT REMINDING/REDIRECTION, MOVES ALL EXTREMETIES, AFEBRILE, PERRLA. ABLE TO MAKE NEEDS KNOWN AND FOLLOWS COMMANDS APPROPRIATLEY. PT IS ON BIPAP T/O THE NIGHT WITH PERIODS OF REST ON 3L/NC AND TOLERATING WELL. SBP IN THE LOW 100'S WITH MAP >65 AND HR IN THE 60'S, PT HAS INSUFFICIENT PERFUSION, MONITORS HAVE A HARD TIME GETTING ACCURATE READINGS. PT IS TOLERATING CLEAR LIQUIDS AND USING URINAL APPROPRIATELY. PT HAS MAINTANCE FLUIDS AND PRECEDEX INFUSING CURRENTLY. SISTER HAS MARIA D FOR UPDATES OVERNIGHT. [facility].
[2025-01-22] MEDS ORDERED: Piperacillin/Tazobactam Sod 3.375 GM in NS 100 ML IV SCH (14:59)
--- NOTE | 2025-01-22 15:03 | NUR ---
Spiritual Care Visit. Pt. is awake in bed and welcomes my visit. Pt. soon moves and sits on the side of his bed. Pt. is pleasant. Facilitate a life review and consider matters of pili and belief. Pt. verbalizes that he has not "been spiritual" lately but adds that he believes it was wrong to blame God for his circumstances. Pastoral care is given. Listen with both emptahy and interest. Pt. displays evidence of both being aware and engaged. Prayed with the Pt. Pt. verbalizes gratitude for the spiritual care visit and welcomes this senior biostatistician to return.
[2025-01-22] MEDS ORDERED: NS 250 ML IV PRN (15:05)
--- NOTE | 2025-01-22 15:28 | NUR ---
DISCUSSED CASE WITH BSRN. RESULTS ARE PENDING AT THIS TIME. PATIENT WAS CONCERNED ABOUT HIS ASSETS IN THE EVENT THAT HE PASSES. PROVIDED COPY OF LAST WILL AND TESTAMENT. HE EXPRESSED THAT IF HE GETS OUT OF THE HOSPITAL HE WOULD LIKE TO TRANSFER EVERYTHING HE OWNES INTO HIS DAUGHTERS NAME. WE DISCUSSED CONSULTING A TAILOR HELPER AND TALKING TO HIS TITLE COMPANY OF HIS HOME. PROVIDED THERAPUTIC CONVERSATION AND HE REVIEWED HIS PROGRESSION OF HIS ILLNESS. HE EXPRESSED THAT HE WANTED HIS DAUGHTER TO MAKE HIS MEDICAL DECISIONS IN THE EVENT THAT HE IS UNABLE TO MAKE DECISIONS FOR HIMSELF. HE RELAYED THAT HE IS UNCERTIAN HE WILL SURVIVE THIS.
--- NOTE | 2025-01-22 18:49 | NUR ---
Summary. Pt improved this shift compared to report. Up to recliner several times this shift, ambulated with PT/OT. Pt alert and oriented although does tend to wander in thought and conversation, forgetful. Pt eating and drinking independently. No acute events this shift. Status change to PCU. See chart for further details.
[2025-01-23] VITALS (7 sets, daily range): BP systolic 144–165; BP diastolic 81–97
[2025-01-23 03:44] LABS: BASOPHILS ABSOLUTE AUTO 0.04 K/mm3 (0.00-0.23); BASOPHILS PERCENT AUTO 0 % (0-2); EOSINOPHILS ABSOLUTE AUTO 0.00 K/mm3 (0.00-0.68); EOSINOPHILS PERCENT AUTO 0 % (0-6); Hematocrit 30.8 % (37.0-53.0); Hemoglobin 9.8 g/dL (13.5-17.5); IMMATURE GRAN ABSOLUTE AUTO 0.65 K/mm3 (0.00-0.10); IMMATURE GRAN PERCENT AUTO 3 % (0-1); LYMPHOCYTES ABSOLUTE AUTO 0.57 K/mm3 (0.84-5.20); LYMPHOCYTES PERCENT AUTO 2 % (21-46); MONOCYTES ABSOLUTE AUTO 0.63 K/mm3 (0.16-1.47); MONOCYTES PERCENT AUTO 3 % (4-13); Mean Corpuscular HGB Conc 31.8 g/dL (31.5-36.5); Mean Corpuscular Volume 93 fL (80-100); NEUTROPHILS ABSOLUTE AUTO 23.72 K/mm3 (1.96-9.15); NEUTROPHILS PERCENT AUTO 93 % (41-73); NRBC ABSOLUTE 0.00 K/mm3 (0.00-0.02); NRBC Auto 0.0 /100 WBC (0.0-0.2); Platelet Count 419 K/mm3 (150-400); RDW Coefficient Variation 13.7 % (11.7-14.2); RDW Standard Deviation 46.8 fL (35.1-46.3)
[2025-01-23 04:04] LABS: Prothrombin Time Results 12.1 Sec (9.7-11.5)
[2025-01-23 04:07] LABS: Alanine Aminotransfer (ALT/SGP 37.0 U/L (12-78); Albumin, Blood 2.3 g/dL (3.4-5.0); Albumin/Globulin Ratio 0.5 (0.8-1.8); Anion Gap 9.0 mmol/L (3-11); Aspartate Aminotrans (AST/SGOT 40.0 U/L (12-37); Bilirubin, Total 0.4 mg/dL (0.1-1.0); Blood Urea Nitrogen 31.0 mg/dL (8-24); CO2, Blood 31.0 mmol/L (21-32); Calcium, Blood 8.6 mg/dL (8.5-10.1); Chloride, Blood 100.0 mmol/L (98-108); Creatinine, Blood 1.46 mg/dL (0.60-1.20); Globulin, Blood 4.6 g/dL (2.2-4.0); Glucose, Blood 126.0 mg/dL (70-99); Potassium, Blood 4.0 mmol/L (3.5-5.5); Sodium, Blood 136.0 mmol/L (136-145); Total Protein, Blood 6.9 g/dL (6.4-8.2)
--- NOTE | 2025-01-23 05:55 | NUR ---
SHIFT SUMMARY NO ACUTE CHANGES DURING NOC. SLEPT VERY LITTLE. ORIENTED AND COOPERATIVE, BUT PT HAS BEEN VERY RESTLESS. C/O FEELING ANXIOUS- CALMS WITH REASSURANCE. O2 2L NC. RESPIRATIONS EVEN AND UNLABORED AT REST. C/O SOB WITH EXERTION. FREQUENT MOIST COUGH- OCCASIONALLY PRODUCTIVE OF CLEAR SPUTUM. MONITOR SHOWS NSR WITH OCCASIONAL PVCs, RATE 60s-70s. BP STABLE. AFEBRILE. VOIDING WITHOUT DIFFICULTY. NATALIA POWERGLIDE PATENT. LR INFUSING AT 75MLS/HR PER ORDER. WILL REPORT TO ONCOMING RN WHEN AVAILABLE.
[2025-01-23] MEDS ORDERED: Ipratropium/Albuterol SulF 2.5-0.5MG/3 ML Amp INH SCH (10:45)
--- NOTE | 2025-01-23 12:22 | NUR ---
Spiritual Care Visit. Pt. is awake and sitting up in a chair eating lunch when he welcomes my visit. Pt. is pleasant, and verbalizes that he expects to be discharged to a nephew's home today, and that he will be getting a Biopsy in a couple of days. Listen with interest and emapthy. Pastoral encouragement is given. Pt. verbalized that his stay in the hospital has given him a chance to "re-set." Pt. displayed evidence of an improved outlook and motivation to address what is next in his health journey. Prayed with the Pt. Pt. verbalized gratitude for the spiritual care visit.
--- NOTE | 2025-01-23 18:27 | NUR ---
Summary. Pt more improved this shift. 02 titrated off, sats >93% on RA. Pt alert and oriented throughout shift. Up frequently to recliner/commode or to work with therapies. Standby assist for cords. Pt has to be reminded to use walker occasionally. VS stable, no acute events this shift. See chart for further details.
[2025-01-23 21:02] LABS: CLOMIPRAMINE QUANT, URN <200 ng/mL; DESIPRAMINE QUANT, URN <100 ng/mL; DOXEPIN QUANT, URN <100 ng/mL; IMIPRAMINE QUANT, URN <100 ng/mL; NORCLOMIPRAMINE QUANT, URN <200 ng/mL; NORDOXEPIN QUANT, URN <100 ng/mL; NORTRIPTYLINE, QUANT, URN <100 ng/mL; PROTRIPTYLINE QUANT, URN <100 ng/mL
--- NOTE | 2025-01-23 21:50 | NUR ---
ASSUMPTION OF CARE/ TRANSFER: ASSUMED CARE AT START OF SHIFT (1899). REPORT RECEVIED FROM DAY SHIFT RN. PTIS DOING WELL AND RESTING IN BED, THEY ARE ALERT AND FOLLOWING COMMANDS. PT DENIES ANY PAIN, CP, OR SOB AT THIS TIME. LUNG SOUNDS ARE COARSE AND DIMINISHED IN BASES, ABSENT IN R MIDDLE LOBE WHERE MASS LOCATED. ON RA WITH SPO2 >94%. SINUS RYTHM WITH SBP: 140'S MAP >65 HR: 70'S. IV: POWERGLIDE IN LUE. PT IS ABLE TO STAND AND USE BEDSIDE COMMODE WITH MINIMAL ASSISTANCE. LINES AND CORDS PLACED OUT OF REACH. PT TRANSFERRED FROM ICU 4 TO PCU 18 @ 2150. REPORT GIVEN TO SHUTTLE OPERATOR. PT WAS TRANSPORTED VIA WHEELCHAIR. PT TRANSFERRED TO PCU BED VIA STAND AND PIVOT. ALL PT BELONGINGS, MEDICATIONS, AND CHART WENT WITH PT TO PCU.
--- NOTE | 2025-01-23 22:41 | NUR ---
SHIFT TOA- TOA RECEIVED ON PHONE FROM PLANT CONTROL AIDE BEFORE TRANSFER.PATIENT CAME WITH RN ON WHEEL CHAIR AND ALERT AND ORIENTED,PATIENT IS ABLE TO MOVE TO BED WITH ONE PERSON ASSIST.PATENT VSS,ON RA O2 SAT ABOVE 92%.PATIENT BED AT LOWEST POSITION,CALL BELLAMY WITHIN REACH AND USE OF CALL BELLAMY ACKNOWLEGED BY PATIENT.
[2025-01-24 00:02] VITALS: BP 166/101
[2025-01-24 03:57] LABS: BASOPHILS ABSOLUTE AUTO 0.06 K/mm3 (0.00-0.23); BASOPHILS PERCENT AUTO 0 % (0-2); EOSINOPHILS ABSOLUTE AUTO 0.00 K/mm3 (0.00-0.68); EOSINOPHILS PERCENT AUTO 0 % (0-6); Hematocrit 28.7 % (37.0-53.0); Hemoglobin 9.3 g/dL (13.5-17.5); IMMATURE GRAN ABSOLUTE AUTO 0.96 K/mm3 (0.00-0.10); IMMATURE GRAN PERCENT AUTO 5 % (0-1); LYMPHOCYTES ABSOLUTE AUTO 0.50 K/mm3 (0.84-5.20); LYMPHOCYTES PERCENT AUTO 2 % (21-46); MONOCYTES ABSOLUTE AUTO 0.48 K/mm3 (0.16-1.47); MONOCYTES PERCENT AUTO 2 % (4-13); Mean Corpuscular HGB Conc 32.4 g/dL (31.5-36.5); Mean Corpuscular Volume 91 fL (80-100); NEUTROPHILS ABSOLUTE AUTO 19.57 K/mm3 (1.96-9.15); NEUTROPHILS PERCENT AUTO 91 % (41-73); NRBC ABSOLUTE 0.00 K/mm3 (0.00-0.02); NRBC Auto 0.0 /100 WBC (0.0-0.2); Platelet Count 387 K/mm3 (150-400); RDW Coefficient Variation 13.8 % (11.7-14.2); RDW Standard Deviation 46.4 fL (35.1-46.3)
[2025-01-24 04:07] VITALS: BP 167/92
[2025-01-24 04:16] LABS: Alanine Aminotransfer (ALT/SGP 30.0 U/L (12-78); Albumin, Blood 2.2 g/dL (3.4-5.0); Albumin/Globulin Ratio 0.5 (0.8-1.8); Anion Gap 7.0 mmol/L (3-11); Aspartate Aminotrans (AST/SGOT 26.0 U/L (12-37); Bilirubin, Total 0.3 mg/dL (0.1-1.0); Blood Urea Nitrogen 32.0 mg/dL (8-24); CO2, Blood 30.0 mmol/L (21-32); Calcium, Blood 8.5 mg/dL (8.5-10.1); Chloride, Blood 103.0 mmol/L (98-108); Creatinine, Blood 1.48 mg/dL (0.60-1.20); Globulin, Blood 4.2 g/dL (2.2-4.0); Glucose, Blood 132.0 mg/dL (70-99); Potassium, Blood 4.2 mmol/L (3.5-5.5); Sodium, Blood 136.0 mmol/L (136-145); Total Protein, Blood 6.4 g/dL (6.4-8.2)
--- NOTE | 2025-01-24 05:55 | NUR ---
SHIFT SUMMARY- PATIENT RECEIVED FROM ICU APPROXIMATELY ON 2230HRS YESTERDAY.PATIENT IS ALERT AND ORINETED,ANXIOUS AT TIMES TO GO HOME,EASILY AROUSABLE OTHERWISE [facility]- 15.VSS,PATIENT IS 1 PERSON ASSIST TO WASHROOM AND SITTING UP ON CHAIR.pATIENT REPOSITION INDEPENDENTLY,SITTING UP ON CHAIR AT THIS TIME.BED AT LOWEST POSITION,CLUTTER FREE EVIRONMENT AND CALL BELLAMY WITHIN REACH,ACKNOWLEDGED BY PATIENT.
--- NOTE | 2025-01-24 06:43 | NUR ---
EVENT- PATIENT IS VERY AGRESSIVE AT THIS TIME AND STATED HE WANTS TO GO HOME,CONFUSED.REASSURANCE GIVEN ND PATIENT IS SITTING UP ON CHAIR AND REMOVED ALL MONITOR LEADS AND REFUSED TO PUT IT ON.PATIENT IS SITTING UP ON CHAIR AND SAID HE WILL CALL HIS SISTER NOW TO COME AND PICK HIM UP.PAGED FIRE ALARM REPAIRER PHYSICIAN AND INFORMED ABOUT THIS SITUATION.
[2025-01-24 08:01] VITALS: BP 165/96
[2025-01-24 10:04] LABS: AMITRIPTYLINE, QUANT, URN <100
[2025-01-24 11:16] VITALS: BP 170/110
[2025-01-24 11:33] LABS: HIV 1,2 COMBO ANTIGEN/ANTIBODY Negative (Negative)
[2025-01-24] MEDS ORDERED: Acetaminophen650 M1 PO (12:21)
[2025-01-24] MEDS ORDERED: ALBU90OI INH (12:21)
[2025-01-24] MEDS ORDERED: Prednisone10 MG PO (12:56)
[2025-01-24] MEDS ORDERED: AMOCLA875 PO (13:00)
[2025-01-24] MEDS ORDERED: VISBIOME 112.51 EACH PO (13:01)
[2025-01-24] MEDS ORDERED: ANORO ELLIPTA1 EACH INH (13:01)
[2025-01-24] MEDS ORDERED: AMLO10 PO (13:18)
[2025-01-24 13:44] VITALS: BP 158/95
--- NOTE | 2025-01-24 14:03 | NUR ---
DISCHARGE SUMMARY: A/O X4, ABLE TO COMMUNICATE NEEDS, USES CALL LIGHT WHEN NECESSARY BUT REFUSES CALL DON'T FALL, ANXIOUS AND IRRITATABLE BUT REDIRECTABLE AND COOPERATIVE WITH CARE. HAS PRN ANXIOLYTIC ORDERED BUT PT DECLINED TX DUE TO PENDING DISCHARGE, PT REFUSED TELEMETRY MONITORING, SCD'S, AND A HOSPITAL GOWN. BEDSIDE ECHO PERFORMED, MD GOODEN AND MD GREEN, MD WOOD TO BEDSIDE THIS AM W/PLAN TO DISCHARGE PENDING ECHO RESULTS: ECHO RESULTS DISCUSSED WITH MD WOOD AND MD HUYNH, CLEARED FOR DC W/CARDIOLOGY FOLLOW UP WITHIN 1-2 WEEKS. RT HOME O2 STUDY PERFORMED: ROOM AIR. CARE COORDINATION PROVIDED MEALS AND GAS VOUCHERS FOR DISCHARGE. PT ORIENTED TO FOLLOW UP APPOINTMENTS, PROVIDED WRITTEN COPY, PT TEXT SISTER A PICTURE OF APPOINTMENT SHEET TO ARRANGE TRANSPORTATION TO AND FROM [facility]. PT LEFT UNIT IN WC WITH ALL BELONINGS AND WITHOUT INCIDENT AT 1350. TRANSPORTATION ARRANGED USING [employer] SERVICE.
[2025-01-25 13:07] LABS: TREPONEMA PALLIDUM AB BY TP-PA Reactive (Non Reactive)
[2025-01-25 18:43] LABS: ALK-PHOSPHATASE BONE CALC 37 U/L (0-55); ALK-PHOSPHATASE LIVER CALC 126 U/L (0-94); ALK-PHOSPHATASE OTHER CALC 0 U/L
== END 2025-01-24 13:50 | disposition home or self-care (01) | DRG 871 ==
LOC: ER 23:35 → PCU 23:36 → ICUE 01-20 07:15 → PCU 01-20 07:36 → ICUE 01-20 15:38 → PCU 01-23 21:53
PROVIDERS: Emergency Medicine; Family Medicine; Internal Medicine Critical Care Medicine; Student in an Organized Health Care Education/Training Program; ADMIT Student in an Organized Health Care Education/Training Program
PROC: 3E03329 Introduction of Other Anti-infective into Peripheral Vein, Percutaneous Approach (ICD-10-PCS; 2025-01-20)
PROC: 5A09357 Assistance with Respiratory Ventilation, Less than 24 Consecutive Hours, Continuous Positive Airway Pressure (ICD-10-PCS; 2025-01-21)
PROC: 0WJ Anatomical Regions, General, Inspection (ICD-10-PCS; 2025-01-21)
PROC: 0W9D3ZZ Drainage of Pericardial Cavity, Percutaneous Approach (ICD-10-PCS; principal; 2025-01-22)
DX: A41.9 Sepsis, unspecified organism (principal); G93.41 Metabolic encephalopathy; J18.9 Pneumonia, unspecified organism; J85.0 Gangrene and necrosis of lung; J96.21 Acute and chronic respiratory failure with hypoxia; J96.22 Acute and chronic respiratory failure with hypercapnia; I71.012 Dissection of descending thoracic aorta; I31.39 Other pericardial effusion (noninflammatory); I31.4 Cardiac tamponade; I13.0 Hypertensive heart and chronic kidney disease with heart failure and stage 1 through stage 4 chronic kidney disease, or unspecified chronic kidney disease; N17.9 Acute kidney failure, unspecified; I82.622 Acute embolism and thrombosis of deep veins of left upper extremity; J44.1 Chronic obstructive pulmonary disease with (acute) exacerbation; I50.9 Heart failure, unspecified; R62.7 Adult failure to thrive; E03.9 Hypothyroidism, unspecified; N18.32 Chronic kidney disease, stage 3b; F41.9 Anxiety disorder, unspecified; R74.8 Abnormal levels of other serum enzymes; D63.1 Anemia in chronic kidney disease; R63.4 Abnormal weight loss; M54.2 Cervicalgia; G89.29 Other chronic pain; R91.8 Other nonspecific abnormal finding of lung field; F17.210 Nicotine dependence, cigarettes, uncomplicated; Z86.73 Personal history of transient ischemic attack (TIA), and cerebral infarction without residual deficits; Z79.890 Hormone replacement therapy; Z79.899 Other long term (current) drug therapy; Z88.8 Allergy status to other drugs, medicaments and biological substances; Z68.28 Body mass index [BMI] 28.0-28.9, adult
CPT/HCPCS: 0202U; 36415; 71045; 71046; 71275; 74174; 75989; 76937; 80048; 80053; 80320; 81001; 82140; 82330; 82607; 82746; 82803; 82947; 82977; 83605; 83615; 83735; 83880; 84075; 84080; 84100; 84145; 84157; 84439; 84443; 84484; 84550; 85025; 85610; 85730; 86780; 87040; 87070; 87075; 87205; 87389; 88108; 88305; 89051; 93005; 93010; 93306; 93971; 94640; 94660; 94664; 94760; 94761; 94762; 96365-59; 96368; 97110; 97162; 97166; 97530; 99152; 99285-25; A9270; C1729; C1751; C1769; C1894; G0378; G0480; G0481; J0295; J0456; J0696; J1644; J2060; J2250; J2312; J2405; J2543; J2919; J3010; J7030; J7040; J7050; J7120; Q9967